=== PATIENT | female | born 1985 | race Caucasian/White ===

== ENCOUNTER 2025-02-01 10:10 | Emergency (ER) | payer OTHER, SELFPAY ==
[~2025-02-01 10:10] MED LIST: Iopamidol 370 76% 100 ML VIAL ONE
[2025-02-01 11:06] LABS: #Basophils 0.03 10x3/uL (0.0-0.2); #Eosinophils 0.08 10x3/uL (0.0-0.5); #Monocytes 0.50 10x3/uL (0.0-1.1); #Neutrophils 5.11 10x3/uL (1.5-8.4); %Basophils 0.4 % (0.0-2.0); %Eosinophils 1.1 % (0.0-6.0); %Lymphocytes 18.0 % (18.0-47.0); %Monocytes 7.1 % (0.0-10.0); %Neutrophils 73.0 % (40.0-75.0); Hematocrit 40.0 % (34.9-44.5); Hemoglobin 13.2 g/dL (12.0-15.5); Mean Corpuscular Hemoglobin 28.6 pg (27.0-33.0); Mean Corpuscular Volume 86.8 fL (81.6-98.3); Platelet Count 301 10x3/uL (150-450); Red Blood Cell (RBC) Count 4.61 10x6/uL (3.90-5.03); White Blood Cell (WBC) Count 7.01 10x3/uL (3.5-10.5)
[2025-02-01 11:25] LABS: ALT (SGPT) 17 U/L (Less than 34); AST (SGOT) 17 U/L (11-34); Albumin 4.2 g/dL (3.1-4.5); Alkaline Phosphatase 70 U/L (40-110); Anion Gap 14 mmol/L (10-20); BUN (Urea Nitrogen) 13 mg/dL (7.0-18.7); Bilirubin, Total 0.3 mg/dL (0.3-1.2); Calc. Creatinine Clearance 0 mL/min (70-130); Calcium 9.2 mg/dL (7.8-10.44); Carbon Dioxide 23 mmol/L (22-29); Chloride 107 mmol/L (98-107); Globulin 3.1 g/dL (2.4-3.5); Glucose 96 mg/dL (70-105); Potassium 4.1 mmol/L (3.5-5.1); Sodium 140 mmol/L (136-145)
[2025-02-01 11:28] LABS: Troponin I Less than 0.010 ng/mL (< 0.028)
[2025-02-01 12:10] LABS: BHCG - Serum Negative (NEGATIVE); Pregs Control Background? CLEAR/WHITE (CLR/WHITE); Pregs Control Bar Appear? YES (CONTROL BAR)
[2025-02-01 12:16] LABS: Magnesium 2.0 mg/dL (1.6-2.6)
== END 2025-02-01 16:19 | disposition home or self-care (01) ==
LOC: CSHERS 10:10
DX: R00.2 Palpitations (principal); R91.1 Solitary pulmonary nodule
CPT/HCPCS: 36415; 71045; 71275; 80053; 83735; 83880; 84443; 84484; 84703; 85025; 85379; 93005